=== PATIENT | female | born 1990 | race Caucasian/White ===

== ENCOUNTER 2023-06-08 20:45 | Outpatient (OUT) | payer OTHER, SELFPAY | END 2023-06-08 20:46 | disposition home or self-care (01) | LOC: SLEEP 20:49 | DX: G47.33 Obstructive sleep apnea (adult) (pediatric) (principal); F51.01 Primary insomnia | CPT/HCPCS: 95810 ==

== ENCOUNTER 2025-05-02 20:42 | Outpatient (OUT) | payer OTHER, SELFPAY | END 2025-05-02 20:43 | disposition home or self-care (01) | LOC: SLEEP 20:42 | PROVIDERS: PCP Nurse Practitioner Family; Visit Provider Nurse Practitioner Family | DX: G47.33 Obstructive sleep apnea (adult) (pediatric) (principal); F51.01 Primary insomnia | CPT/HCPCS: 95810 ==

== ENCOUNTER 2025-05-24 19:39 | Outpatient (OUT) | payer OTHER, SELFPAY | END 2025-05-24 19:40 | disposition home or self-care (01) | LOC: SLEEP 19:39 | PROVIDERS: PCP Nurse Practitioner Family; Visit Provider Psychiatry & Neurology Neurology | DX: G47.33 Obstructive sleep apnea (adult) (pediatric) (principal); F51.01 Primary insomnia | CPT/HCPCS: 95811 ==